=== PATIENT | male | born 1990 | race Caucasian/White ===

== ENCOUNTER → 2019-09-04 16:18 | Outpatient (CLI) | payer OTHER, BC, SELFPAY ==
--- NOTE | 2019-09-04 16:45 | MRI_ITS ---
STUDY: MRI CERVICAL SPINE WITHOUT CONTRAST REASON FOR EXAM: Male, 29 years old. Upper back pain and cervical strain TECHNIQUE: Standardized fat and water weighted pulse sequences were obtained in the sagittal and axial planes. COMPARISON: None FINDINGS: Normal foramen magnum and brainstem-cervical cord junction. Normal craniovertebral junction. Normal anterior atlantoaxial articulation. Normal odontoid process. Cervical kyphosis.. Normal vertebral bodies and posterior osseous elements. C2-3: Grade 1 spondylolisthesis Normal endplates. Normal disc height, signal and morphology. Normal central canal and intervertebral neural foramina. C3-4: Normal endplates. Normal disc height, signal and minimal bulging of the disc.. Normal central canal and intervertebral neural foramina. C4-5: Normal endplates. Normal disc height, signal and minimal bulging of the disc.. Normal central canal and intervertebral neural foramina. C5-6: Mild endplate spurring.. Normal disc height, signal and small central/right paracentral disc protrusion mildly narrowing the spinal canal and compressing the cord.. Normal bilateral neuroforamina C6-7: Normal endplates. Normal disc height, signal and tiny central disc protrusion.. Normal central canal and intervertebral neural foramina. C7-T1: Normal endplates. Normal disc height, signal and morphology. Normal central canal and intervertebral neural foramina. Normal cervical cord. Normal visualized soft tissue structures. MRI/Spine Cervical (Routine) IMPRESSION: Small central/right paracentral disc protrusion at C5-6 mildly narrowing the central canal and mildly compressing the ventral surface of the cord. . Minimal bulging of the disc at C3-4 and C4-5 and tiny central disc protrusion at C6-7 without significant spinal stenosis Electronically Signed: Corey Allen MD at 18:07 EST , Service support ,
--- NOTE | 2019-09-04 17:30 | MRI_ITS ---
STUDY: MRI THORACIC SPINE WITHOUT CONTRAST REASON FOR EXAM: Male, 29 years old. Mid upper back pain TECHNIQUE: Standardized fat and water weighted pulse sequences were obtained in the sagittal and axial planes. COMPARISON: None. FINDINGS: Normal kyphosis of the thoracic spine. There is no substantial scoliosis. T1-2, T2-3, T3-4, T4-5, T5-6, T6-7, T7-8, T8-9, T9-10, T10-11, T11-12: Normal endplates. Normal disc hydration, heights and morphology of the corresponding intervertebral discs. Normal central canal and intervertebral neural foramina at the corresponding levels. There is a very thin well-rounded central area of increased intramedullary signal intensity in the cord extending from approximately T7-T8- 9 which has the appearance of a syrinx of uncertain etiology and clinical significance... Normal conus medullaris that terminates at T12 The soft tissue structures are unremarkable. MRI/Spine Thoracic (Routine) IMPRESSION: Nonspecific syrinx within the central cord of uncertain etiology or clinical significance. Limited repeat study with contrast would be helpful to exclude coexisting intramedullary mass.. Otherwise normal unenhanced MRI of the thoracic spine Electronically Signed: Corey Allen MD at 18:02 EST , Service support ,
== END ==
PROVIDERS: Referring Provider Family Medicine; Visit Provider Family Medicine
DX: S16.1XXA Strain of muscle, fascia and tendon at neck level, initial encounter (principal); S29.012A Strain of muscle and tendon of back wall of thorax, initial encounter
CPT/HCPCS: 72141; 72146